=== PATIENT | female | born 1945 | race Caucasian/White ===

== ENCOUNTER 2023-02-05 09:48 | Inpatient (IN) ==
--- NOTE | 2023-02-05 10:30 | DR.URIAD ---
HPI Time Seen Time Seen by Provider: 02/05/23 10:29 PCP Primary Care Physician: nfd Complaint Chief Complaint Doctors Comments: 77 y/o female presents for evaluation. Ill ovr the past 2-3 weeks, + worsening. Has a bad cough, productive of white sputum. Having some chest discomfort, worse with coughing. Feeling weak in general, + worse with ambulation, + lightheaded. Some nausea, no vomiting. Running low grade temp. + urinary frequency with incontinence at times. Chief Complaint:: Pt c/o tightness in chest [place] worse with cough, productive cough, runny nose, weak, "I feel drained", headache, head congestion, "I feel terrible" Self Treatment fo Chief Complaint: taking OTC meds w/o relief of sx COVID-19 Coronavirus risk:travel/contact w/high risk person: No Has patient experienced Coronavirus symptoms: Yes Coronavirus symptoms experienced: Coughing Reviewed Nurses Notes Reviewed: Yes Source History Provided: Patient and Family Member Mode of Arrival Mode of Arrival: Wheelchair Timing Onset of Chief Complaint: 01/22/23 Quality Shortness of Breath: none PMH PMH Past Medical History: Yes Past Medical History: Diabetes and Hypertension Past Surgical History: Yes Surgical History: Cholecystectomy Past Surgical History Comment: tubal ligation Social History Does patient currently use any type of tobacco product: No Have you used tobacco products in the last 12 months: No Type of Tobacco Use: None Does any household member use tobacco: Yes Alcohol Use: None Do you use any recreational Drugs:: No Lives With: Family Lives Where: Home Travel Risk Coronavirus risk:travel/contact w/high risk person: No Has patient experienced Coronavirus symptoms: Yes Coronavirus symptoms experienced: Coughing Infectious screening In the last 2 months have you had wt loss of >10#?: NO Have you had fever, night sweats or hemotysis?: No Have you traveled outside the country in the last 6 months?: No Isolation: Droplet ROS Review of Systems Constitutional: Fever and Weakness Eyes: No Symptoms Reported ENTM: Nose Congestion Respiratoy: Moist Cough and Short of Breath Cardiovascular: Chest Pain Gastrointestinal/Abdominal: Nausea Genitourinary: Frequency Neurological: Weakness and Dizziness Musculoskeletal: No Symptoms Reported Integumentary: No Symptoms Reported All Other Systems: Reviewed and Negative PE Vital Signs Vitals: Vital Signs Temperature 99.8 F Pulse Rate 68 Pulse Rate 66 Pulse Rate 65 Pulse Rate 65 Pulse Rate 67 Pulse Rate 65 Pulse Rate 66 Pulse Rate 81 Pulse Rate 79 Pulse Rate 63 Pulse Rate 65 Pulse Rate 64 Pulse Rate 66 Pulse Rate 68 Pulse Rate 79 Pulse Rate 73 Pulse Rate 77 Pulse Rate 77 Pulse Rate 76 Pulse Rate 75 Pulse Rate 84 Pulse Rate 88 Pulse Rate 85 Pulse Rate 87 Pulse Rate 92 Respiratory Rate 21 Respiratory Rate 16 Respiratory Rate 17 Respiratory Rate 14 Respiratory Rate 18 Respiratory Rate 16 Respiratory Rate 18 Respiratory Rate 46 Respiratory Rate 16 Respiratory Rate 16 Respiratory Rate 15 Respiratory Rate 16 Respiratory Rate 18 Respiratory Rate 17 Respiratory Rate 26 Respiratory Rate 16 Respiratory Rate 25 Respiratory Rate 25 Respiratory Rate 25 Respiratory Rate 23 Respiratory Rate 25 Respiratory Rate 23 Respiratory Rate 8 Respiratory Rate 25 Respiratory Rate 24 Blood Pressure 136/77 Blood Pressure 133/62 Blood Pressure 138/68 Blood Pressure 131/65 Blood Pressure 122/66 O2 Sat by Pulse Oximetry 93 O2 Sat by Pulse Oximetry 94 O2 Sat by Pulse Oximetry 91 O2 Sat by Pulse Oximetry 92 O2 Sat by Pulse Oximetry 91 O2 Sat by Pulse Oximetry 93 O2 Sat by Pulse Oximetry 94 O2 Sat by Pulse Oximetry 89 O2 Sat by Pulse Oximetry 92 O2 Sat by Pulse Oximetry 90 O2 Sat by Pulse Oximetry 93 O2 Sat by Pulse Oximetry 90 O2 Sat by Pulse Oximetry 89 O2 Sat by Pulse Oximetry 88 O2 Sat by Pulse Oximetry 92 O2 Sat by Pulse Oximetry 94 O2 Sat by Pulse Oximetry 92 O2 Sat by Pulse Oximetry 91 O2 Sat by Pulse Oximetry 92 O2 Sat by Pulse Oximetry 91 O2 Sat by Pulse Oximetry 91 O2 Sat by Pulse Oximetry 94 O2 Sat by Pulse Oximetry 91 O2 Sat by Pulse Oximetry 93 O2 Sat by Pulse Oximetry 95 General General Appearance: Alert and In No Apparent Distress Eyes Eye exam: PERRL and EOMI ENT ENT Exam: Mucous Membranes Moist Neck Neck Exam: Normal Inspection Chest Chest Inspection: Normal Inspection Respiratory Respiratory Exam: Normal Lung Sounds Bilat and Other (+ scattered rhonchi, clears with cough); negative Accessory Muscle Use or Respiratory Distress Cardiovascular Cardiovascular Exam: Regular Rate, Normal Rhythm and Normal Heart Sounds Abdominal Exam Abdominal Exam: Normal Bowel Sounds and Soft; negative Tenderness Extremeties Extremities Exam: Normal Inspection; negative Edema Back Back Exam: Normal Inspection Neurologic Neurological Exam: Alert, Oriented X3 and CN II-XII Intact; negative Motor Sensory Deficit Skin Skin Exam: Warm and Dry COURSE Treatment Treatment: 77 y/o with worsening weakness, cough over past 2 weeks. W/u initiated. Pt given IV fluids. CXR - clear. Labs overall acceptable. Pt with hypoxia at rest, worse with exertion. CTA of the chest performed - + bilateral bronchitis changes, but otherwise acceptable. PT recently moved to the area, no prior lung problems. Discussed with Dr Rosales, aircraft load controller, accepts the admission. Will baldo for hypoxia/bronchitis. ROR Labs Reviewed Laboratory Results Reviewed?: Yes 02/05/23 10:45 02/05/23 10:45 Laboratory: WBC 4.7 X10^3/uL (3.6-10.0) 02/05/23 10:45 RBC 4.39 X10^6/uL (3.5-5.4) 02/05/23 10:45 Hgb 12.6 g/dL (12.0-16.0) 02/05/23 10:45 Hct 36.7 % (36.0-47.0) 02/05/23 10:45 MCV 83.7 fL (80.0-100.0) 02/05/23 10:45 MCH 28.8 pg (27.0-34.0) 02/05/23 10:45 MCHC 34.4 g/dL (33.0-35.0) 02/05/23 10:45 RDW 14.1 % (11.6-16.5) 02/05/23 10:45 Plt Count 192 X10^3/uL (150.0-450.0) 02/05/23 10:45 MPV 8.0 fL (7.4-11.0) 02/05/23 10:45 Neut % (Auto) 72.8 % (42.0-75.0) 02/05/23 10:45 Lymph % (Auto) 16.5 % (21.0-51.0) L 02/05/23 10:45 [place] % (Auto) 8.8 % (0.0-13.0) 02/05/23 10:45 Eos % (Auto) 1.4 % (0.9-2.9) 02/05/23 10:45 Baso % (Auto) 0.5 % (0.2-1.0) 02/05/23 10:45 Neut # (Auto) 3.5 x10^3/uL (2.2-4.8) 02/05/23 10:45 Lymph # (Auto) 0.8 X10^3/uL (1.3-2.9) L 02/05/23 10:45 [place] # (Auto) 0.4 x10^3/uL (0.3-0.8) 02/05/23 10:45 Eos # (Auto) 0.1 x10^3/uL (0.0-0.2) 02/05/23 10:45 Baso # (Auto) 0.0 X10^3/uL (0.0-0.1) 02/05/23 10:45 Absolute Nucleated RBC 0.1 /100WBC 02/05/23 10:45 Sodium 134 mmol/L (136-145) L 02/05/23 10:45 Corrected Sodium 135 mmol/L (136-145) L 02/05/23 10:45 Potassium 3.7 mmol/L (3.5-5.1) 02/05/23 10:45 Chloride 98 mmol/L (98-107) 02/05/23 10:45 Carbon Dioxide 25.1 mmol/L (21-32) 02/05/23 10:45 BUN 15 mg/dL (7-18) 02/05/23 10:45 Creatinine 0.95 mg/dL (0.55-1.02) 02/05/23 10:45 Est GFR (MDRD) Af Amer > 60 (>60) 02/05/23 10:45 Est GFR (MDRD) Non-Af > 60 (>60) 02/05/23 10:45 Glucose 153 mg/dL (65-99) H 02/05/23 10:45 Lactic Acid 0.8 mmol/L (0.4-2.0) 02/05/23 10:45 Calcium 8.7 mg/dL (8.5-10.1) 02/05/23 10:45 Corrected Calcium 9.5 mg/dL (8.5-10.1) 02/05/23 10:45 Total Bilirubin 1.30 mg/dL (0.2-1.0) H 02/05/23 10:45 AST 21 Units/L (15-37) 02/05/23 10:45 ALT 27 Units/L (12-78) 02/05/23 10:45 Alkaline Phosphatase 58 Units/L (46-116) 02/05/23 10:45 Troponin I High Sens 8.4 ng/L (4.0-60.0) 02/05/23 10:45 B-Natriuretic Peptide 57.6 pg/mL (0-79) 02/05/23 10:45 Total Protein 6.8 g/dL (6.4-8.2) 02/05/23 10:45 Albumin 3.0 g/dL (3.4-5.0) L 02/05/23 10:45 Globulin 3.8 g/dL (2.5-4.5) 02/05/23 10:45 Albumin/Globulin Ratio 0.8 Ratio (1.1-2.1) L 02/05/23 10:45 Lipase 55 Units/L (73-393) L 02/05/23 10:45 Specimen Type Clean catch urine 02/05/23 12:30 Urine Color Dark yellow (YELLOW) 02/05/23 12:30 Urine Appearance Hazy (CLEAR) 02/05/23 12:30 Urine pH 6.0 (5.0 - 8.0) 02/05/23 12:30 Ur Specific [place] 1.020 (1.000-1.030) 02/05/23 12:30 Urine Protein 2+ (NEGATIVE) 02/05/23 12:30 Urine Glucose (UA) Negative (NEGATIVE) 02/05/23 12:30 Urine Ketones 3+ (NEGATIVE) 02/05/23 12:30 Urine Blood 1+ (NEGATIVE) 02/05/23 12:30 Urine Nitrite Negative (NEGATIVE) 02/05/23 12:30 Urine Bilirubin 1+ (NEGATIVE) 02/05/23 12:30 Urine Urobilinogen 2+ (NORMAL) 02/05/23 12:30 Ur Leukocyte Esterase Negative (NEGATIVE) 02/05/23 12:30 Urine RBC 0-2 /HPF (0-3) 02/05/23 12:30 Urine WBC 0-2 /HPF (0-5) 02/05/23 12:30 Ur Squamous Epith Cells Moderate /HPF (NEGATIVE) 02/05/23 12:30 Urine Bacteria Trace /HPF (NEGATIVE) 02/05/23 12:30 Hyaline Casts Many /LPF (NEGATIVE) 02/05/23 12:30 Urine Mucus Many /HPF (NEGATIVE) 02/05/23 12:30 Ur Culture Indicated? No/not indicated 02/05/23 12:30 SARS-CoV-2 (PCR) Negative (NEGATIVE) 02/05/23 10:29 Influenza Type A (PCR) Negative (NEGATIVE) 02/05/23 10:29 Influenza Type B (PCR) Negative (NEGATIVE) 02/05/23 10:29 RSV (PCR) Negative (NEGATIVE) 02/05/23 10:29 Labs acceptable XRAY XRAY Interpreted by: Both X-ray Results: HISTORY DYSPNEA STUDY CTA CHEST COMPARISON None available TECHNIQUE Multiple axial images of the chest were obtained from the thoracic inlet to the upper abdomen after the administration of IV contrast. 3D reconstructions utilizing axial MIPS imaging was performed and reviewed. Dose reduction techni ques including Automated Exposure Control (AEC) and adjustment of mA and kV were utilized. FINDINGS There is a nodular opacity within the right upper lobe bronchus seen on axial image 64. There is mild diffuse peribronchial thickening within bilateral lungs. There is mild peribronchial thickening and ground-glass consolidation within the left greater than right lower lobes. Centrilobular and paraseptal emphysema. Trachea is midline. Evaluation of pulmonary arteries is significant limited within the subsegmental branches of the right and left lower lobes. Pulmonary thromboembolus within the lower lobe subsegmental arteries is not excluded by this examination. No pleural effusion or pneumothorax. Heart size is without pericardial effusion. Moderate calcified atherosclerotic disease of the coronary arteries. Thyroid gland is normal. Mildly enlarged subcarinal lymph nodes. Shotty bilateral hilar lymph nodes. Review of bone windows demonstrates advanced degenerative change of bilateral glenohumeral joints. No acute osseous abnormality identified. Imaging of the upper abdomen demonstrates no abnormality. IMPRESSION Significantly limited evaluation of pulmonary arteries given motion artifact and contrast bolus timing within the lower lobe segmental pulmonary arteries, the well opacified pulmonary demonstrate no PTE. Moderate bilateral peribronchial thickening and peribronchial consolidation within the lower lobes consistent with a/bronchitis. Recommend correlation with follow-up chest CT to ensure resolution. Additional incidental, nonacute findings as described above. Electronically signed by: LESLY PRO (Feb 05, 2023 15:18:59) EKG Rate: 85 [place]: Normal Rhythm: NSR ST: Nonsp (+ decreased R wave progression of anterior leads.) Opioid Opioid Risk Tool Age (Woody box if 16-45): No History of Preadolescent Sexual Abuse: No Total: 0 Total Score Risk Category: Low Risk Copyright: Stone MAX predicting aberrant behaviors Discharge Plan Diagnosis Discharge Problem: Hypoxia, Acute bronchitis Discharge Plan Patient Disposition: 09 ADMITTED INPATIENT Condition: Stable Orders to Discharge Patient Discharge Orders: Transfer (Routine); Ordered 02/05/23 Ordered By: Dwight Keita
[2023-02-05] MEDS ORDERED: NS 1,000 ML IV 1,000 ML IV ONE (10:45)
[2023-02-05] MEDS ORDERED: NS 500 ML IV 500 ML IV ONE ×2 (10:46→10:57)
--- NOTE | 2023-02-05 11:03 | EKG ---
Test Reason : dyspnea Blood Pressure : */* mmHG Vent. Rate : 85 BPM Atrial Rate : 85 BPM P-R Int : 178 ms QRS Dur : 80 ms QT Int : 354 ms P-R-T Axes : -28 23 52 degrees QTc Int : 421 ms Normal sinus rhythm Low voltage QRS Cannot rule out Anteroseptal infarct , age undetermined Abnormal ECG No previous ECGs available Confirmed by Sal Link ([id number]) on 02/07/2023 12:12:44 PM Referred By: Confirmed By: Sal Link
[2023-02-05 11:24] LABS: BASOPHILS % (AUTO) 0.5 % (0.2-1.0); EOSINOPHILS # (AUTO) 0.1 x10^3/uL (0.0-0.2); EOSINOPHILS % (AUTO) 1.4 % (0.9-2.9); HEMATOCRIT 36.7 % (36.0-47.0); HEMOGLOBIN 12.6 g/dL (12.0-16.0); LYMPHOCYTES # (AUTO) 0.8 X10^3/uL (1.3-2.9); LYMPHOCYTES % (AUTO) 16.5 % (21.0-51.0); MEAN CORPUSCULAR HEMOGLOBIN 28.8 pg (27.0-34.0); MEAN CORPUSCULAR HGB CONC 34.4 g/dL (33.0-35.0); MEAN CORPUSCULAR VOLUME 83.7 fL (80.0-100.0); MONOCYTES # (AUTO) 0.4 x10^3/uL (0.3-0.8); MONOCYTES % (AUTO) 8.8 % (0.0-13.0); NEUTROPHILS # (AUTO) 3.5 x10^3/uL (2.2-4.8); NEUTROPHILS % (AUTO) 72.8 % (42.0-75.0); PLATELET COUNT 192 X10^3/uL (150.0-450.0); RED BLOOD COUNT 4.39 X10^6/uL (3.5-5.4); RED CELL DISTRIBUTION WIDTH 14.1 % (11.6-16.5); WHITE BLOOD COUNT 4.7 X10^3/uL (3.6-10.0)
[2023-02-05 11:41] LABS: LACTIC ACID 0.8 mmol/L (0.4-2.0)
[2023-02-05 11:42] LABS: ALANINE AMINOTRANSFERASE 27 Units/L (12-78); ALKALINE PHOSPHATASE 58 Units/L (46-116); ASPARTATE AMINO TRANSFERASE 21 Units/L (15-37); BLOOD UREA NITROGEN 15 mg/dL (7-18); CALCIUM 8.7 mg/dL (8.5-10.1); CARBON DIOXIDE 25.1 mmol/L (21-32); CHLORIDE 98 mmol/L (98-107); COR CA(FOR HYPOALB) 9.5 mg/dL (8.5-10.1); COR NA(FOR HYPERGLY) 135 mmol/L (136-145); CREATININE 0.95 mg/dL (0.55-1.02); GLUCOSE 153 mg/dL (65-99); LIPASE 55 Units/L (73-393); POTASSIUM 3.7 mmol/L (3.5-5.1); SODIUM 134 mmol/L (136-145); TOTAL PROTEIN 6.8 g/dL (6.4-8.2); eGFR NON BLACK RACES > 60 (>60)
[2023-02-05 12:39] LABS: BILIRUBIN,URINE 1+ (NEGATIVE); BLOOD/HEMOGLOBIN,URINE 1+ (NEGATIVE); GLUCOSE, URINE NEGATIVE (NEGATIVE); KETONES,URINE 3+ (NEGATIVE); LEUKOCYTE ESTERASE ,URINE NEGATIVE (NEGATIVE); NITRITES,URINE NEGATIVE (NEGATIVE); PROTEIN,URINE 2+ (NEGATIVE); UROBILINOGEN,URINE 2+ (NORMAL)
[2023-02-05 12:46] LABS: APPEARANCE,URINE HAZY (CLEAR); COLOR,URINE DARK YELLOW (YELLOW)
[2023-02-05 12:47] LABS: BACTERIA,URINE TRACE /HPF (NEGATIVE); HYALINE CASTS, URINE MANY /LPF (NEGATIVE); RBC,URINE 0-2 /HPF (0-3); SQUAMOUS EPITHELIAL CELL,UR MODERATE /HPF (NEGATIVE)
--- NOTE | 2023-02-05 13:33 | RAD ---
HISTORYCOUGH Relevant Clinical InformationSTUDYCHEST, 1 VIEWCOMPARISONnoneFINDINGSThe trachea is midline. The cardiac silhouette is unremarkable. No pleural effusion or pneumothorax. No dominant alveolar radiopacities. 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
[2023-02-05] MEDS ORDERED: OMNIPAQUE 350 mg/mL 100 mL BTL 100 ML ONE (14:02)
--- NOTE | 2023-02-05 15:20 | CT ---
HISTORYDYSPNEASTUDYCTA CHESTCOMPARISONNone availableTECHNIQUEMultiple axial images of the chest were obtained from the thoracic inlet to the upper abdomen after the administration of IV contrast. 3D reconstructions utilizing axial MIPS imaging was performed and reviewed. Dose reduction techniques including Automated Exposure Control (AEC) and adjustment of mA and kV were utilized.FINDINGSThere is a nodular opacity within the right upper lobe bronchus seen on axial image 64. There is mild diffuse peribronchial thickening within bilateral lungs. There is mild peribronchial thickening and ground-glass consolidation within the left greater than right lower lobes. Centrilobular and paraseptal emphysema. Trachea is midline.Evaluation of pulmonary arteries is significant limited within the subsegmental branches of the right and left lower lobes. Pulmonary thromboembolus within the lower lobe subsegmental arteries is not excluded by this examination.No pleural effusion or pneumothorax.Heart size is without pericardial effusion. Moderate calcified atherosclerotic disease of the coronary arteries. Thyroid gland is normal.Mildly enlarged subcarinal lymph nodes. Shotty bilateral hilar lymph nodes.Review of bone windows demonstrates advanced degenerative change of bilateral glenohumeral joints. No acute osseous abnormality identified. Imaging of the upper abdomen demonstrates no abnormality.IMPRESSIONSignificantly limited evaluation of pulmonary arteries given motion artifact and contrast bolus timing within the lower lobe segmental pulmonary arteries, the well opacified pulmonary demonstrate no PTE.Moderate bilateral peribronchial thickening and peribronchial consolidation within the lower lobes consistent with a/bronchitis. Recommend correlation with follow-up chest CT to ensure resolution.Additional incidental, nonacute findings as described above.Electronically signed by: LESLY PRO (Feb 05, 2023 15:18:59)
[2023-02-05] MEDS ORDERED: SOLU-Medrol 125 MG VIAL IVP STA (16:08)
[2023-02-05] MEDS ORDERED: DUONEB 0.5 MG/3 MG (3 mL) NEB ONE ×2 (16:09→16:23)
[2023-02-05] MEDS ORDERED: ROCEPHIN VIAL 1 GRAM IV SCH (16:15)
[2023-02-05] MEDS ORDERED: SOLU-Medrol 40 MG VIAL ONE (16:22)
[2023-02-05] MEDS ORDERED: ROCEPHIN VIAL 1 GRAM ONE (16:22)
[2023-02-05] MEDS ORDERED: NS 100 ML IV 100 ML ONE (16:23)
[2023-02-05] MEDS ORDERED: ROCEPHIN VIAL 1 GRAM 1 G in NS 100 ML IV 100 ML IV SCH (17:00)
[2023-02-05] MEDS ORDERED: CONSULT PHARMACY - POTASSIUM & MAGNESIUM XX SCH (18:25)
[2023-02-05] MEDS ORDERED: DUONEB 0.5 MG/3 MG (3 mL) NEB SCH (18:25)
[2023-02-05] MEDS ORDERED: K-DUR TAB 20 MEQ PO SCH (19:00)
[2023-02-05 19:17] VITALS: BMI 26.0
[2023-02-05] MEDS: MAG-OX TAB PO SCH ×4 (19:45→22:43)
[2023-02-05] MEDS ORDERED: MILK OF MAGNESIA PO PRN (21:44)
[2023-02-05] MEDS: SOLU-Medrol 40 MG VIAL IVP SCH (23:32)
[2023-02-06] MEDS: DUONEB 0.5 MG/3 MG (3 mL) NEB SCH ×4 (00:57→17:01)
[2023-02-06] MEDS: SOLU-Medrol 40 MG VIAL IVP SCH ×3 (05:23→21:21)
[2023-02-06 06:11] LABS: HEMOGLOBIN 12.2 g/dL (12.0-16.0); MEAN CORPUSCULAR HGB CONC 35.2 g/dL (33.0-35.0); MEAN PLATELET VOLUME 7.8 fL (7.4-11.0); RED CELL DISTRIBUTION WIDTH 13.6 % (11.6-16.5); WHITE BLOOD COUNT 2.6 X10^3/uL (3.6-10.0)
[2023-02-06 06:20] LABS: BASOPHILS % (AUTO) 0.1 % (0.2-1.0); EOSINOPHILS % (AUTO) 0.1 % (0.9-2.9); HEMATOCRIT 34.7 % (36.0-47.0); LYMPHOCYTES # (AUTO) 0.8 X10^3/uL (1.3-2.9); LYMPHOCYTES % (AUTO) 29.2 % (21.0-51.0); MEAN CORPUSCULAR VOLUME 82.6 fL (80.0-100.0); MONOCYTES # (AUTO) 0.1 x10^3/uL (0.3-0.8); MONOCYTES % (AUTO) 2.7 % (0.0-13.0); NEUTROPHILS # (AUTO) 1.8 x10^3/uL (2.2-4.8); NEUTROPHILS % (AUTO) 67.9 % (42.0-75.0); PLATELET COUNT 189 X10^3/uL (150.0-450.0)
[2023-02-06 06:44] LABS: ALANINE AMINOTRANSFERASE 31 Units/L (12-78); ALBUMIN 2.8 g/dL (3.4-5.0); ALKALINE PHOSPHATASE 59 Units/L (46-116); ASPARTATE AMINO TRANSFERASE 23 Units/L (15-37); BLOOD UREA NITROGEN 19 mg/dL (7-18); CALCIUM 8.8 mg/dL (8.5-10.1); CARBON DIOXIDE 26.2 mmol/L (21-32); CHLORIDE 98 mmol/L (98-107); COR CA(FOR HYPOALB) 9.8 mg/dL (8.5-10.1); COR NA(FOR HYPERGLY) 137 mmol/L (136-145); CREATININE 0.97 mg/dL (0.55-1.02); GLUCOSE 289 mg/dL (65-99); MAGNESIUM 1.7 mg/dL (2.0-2.9); POTASSIUM 4.3 mmol/L (3.5-5.1); SODIUM 132 mmol/L (136-145); TOTAL PROTEIN 6.7 g/dL (6.4-8.2); eGFR NON BLACK RACES 59 (>60)
[2023-02-06] MEDS ORDERED: CONSULT PHARMACY - POTASSIUM & MAGNESIUM XX SCH (08:00)
[2023-02-06] MEDS ORDERED: ZESTRIL TAB 20 MG ONE (08:04)
[2023-02-06] MEDS: COLACE CAP 100 MG PO SCH (08:41)
[2023-02-06] MEDS: PRAVACHOL PO SCH (08:41)
[2023-02-06] MEDS: ZESTRIL TAB 20 MG PO SCH (08:42)
[2023-02-06] MEDS: ROCEPHIN VIAL 1 GRAM 1 G in NS 100 ML IV 100 ML IV SCH (08:42)
[2023-02-06] MEDS: MAG-OX TAB PO SCH ×2 (08:42→21:20)
[2023-02-06] MEDS: ASPIRIN 81 MG CHEWTAB PO SCH (08:42)
[2023-02-06] MEDS ORDERED: NS 250 ML IV 250 ML IV ONE (08:47)
[2023-02-06 09:36] LABS: ABG BASE EXCESS 6.3 mmol/L (-2.0-2.0); ABG HCO3 29.4 mmol/L (22-26)
[2023-02-06 09:38] LABS: ABG ALLEN TEST POS
[2023-02-06] MEDS: NovoLIN R (or HumuLIN R) SUBCUT PRN ×3 (12:28→21:28)
--- NOTE | 2023-02-06 14:33 | DR.H&P ---
H&P - History & Physical for Day of: H&P Date: 02/05/23 - Chief Complaint Chief Complaint: CCC, SOB, WEAKNESS. - History of Present Illness History of Present Illness: PT IS 77 WF, ER ADMISSION WITH SOB, HYPOXIA AND CCC. PT REPORTS SHE HAS BEEN SICK FOR SEVERAL WEEKS AND GETTING WORSE. PT DENIES ANY PMH OF ASTHMA OR LUNG DISEASE. PT HAS HTN AND DM. PT WAS HYPOXIC ON ARRIVAL TO ER WITH PNEUMONIA. PT REPORT SHE HAS HAD BLACK MOLD EXPOSURE, DISCOVERED THIS BACK IN DECEMBER. - Past Medical History Past Medical History: Hypertension, Diabetes - Past Surgical History Surgical History: Cholecystectomy, [employer] Surgery - Social History Does patient currently use any type of tobacco product: No Have you used tobacco products in the last 12 months: No Type of Tobacco Use: None How many years tobacco product used: 30 Does any household member use tobacco: Yes Alcohol Use: None Drug Use: None - Review of Systems Constitutional: Chills, Weakness, Malaise Eyes: No Symptoms Reported ENT: No Symptoms Reported Respiratory: Cough, Shortness of Breath, SOB with Excertion, Sputum, Wheezing Cardiovascular: Palpitations Gastrointestinal: Nausea Genitourinary: No Symptoms Reported Musculoskeletal: No Symptoms Reported Skin: No Symptoms Reported Neurological: Weakness - Physical Exam Vital Signs: Vital Signs Temperature 98.0 F Temperature 98.2 F Pulse Rate [Brachial] 63 Pulse Rate [Brachial] 75 Pulse Rate 88 Respiratory Rate 22 Respiratory Rate 22 Blood Pressure [Right Arm] 162/69 Blood Pressure [Right Arm] 144/75 O2 Sat by Pulse Oximetry 94 O2 Sat by Pulse Oximetry 94 O2 Sat by Pulse Oximetry 94 Oriented: Normal Eyes: Normal Ear: Normal Nose: Normal Throat: Dry Respiratory: Wheezes Throughout, RLL Diminished, LLL Diminished Cardiovascular: Tachycardia. negative: Edema : Normal Auscultation: Bowel Sounds: Normal Palpation: Normal Tenderness: Normal Skin: Decreased [place]urgur Musculoskeletal: Normal Psychiatric: Anxiety Affect: Anxious Speech Pattern: Clear, Appropriate - Assessment/Plan (1) Pneumonia Status: Acute Plan: ADMIT, RESP PANEL ON ADMISSION. CTA LUNGS RO PE. IV ATBX, SPUTUM CULTURE ON ADMISSION. GENTLE IV HYDRATION WITH I&OS. VERIFY HOME MEDICATION, BP CONTROL, BS CONTROL WITH SSI (2) Hypoxia Status: Acute (3) Hypertension Status: Acute - Allergies Allergies/Adverse Reactions: Allergies Allergy/AdvReac Type Severity Reaction Status Date / Time No Known Allergies Allergy Verified 02/05/23 10:13 - Medications Home Medications: Home Medications Medication Instructions Recorded Confirmed aspirin 81 mg chewable tablet 81 mg PO QAM 02/05/23 02/05/23 lisinopril 20 mg tablet 20 mg PO QAM 02/05/23 02/05/23 polyethylene glycol 3350 17 gram 17 g PO QDAY PRN Constipation 02/05/23 02/05/23 oral powder packet (Miralax) pravastatin 20 mg tablet 20 mg PO QAM 02/05/23 02/05/23
[2023-02-06] MEDS: NS 1,000 ML IV 1,000 ML IV SCH (15:09)
[2023-02-06] MEDS: PROTONIX INJ 40 MG VIAL IVP SCH (15:10)
[2023-02-06] MEDS: ROBITUSSIN DM PO SCH ×2 (17:05→21:21)
[2023-02-06] MEDS: SNACK - Diabetic Appropriate PO SCH (19:00)
[2023-02-06] MEDS: PULMICORT NEB TX 0.5 MG NEB SCH (21:19)
[2023-02-07] MEDS: DUONEB 0.5 MG/3 MG (3 mL) NEB SCH ×4 (00:18→17:46)
[2023-02-07] MEDS: SOLU-Medrol 40 MG VIAL IVP SCH (05:14)
[2023-02-07] MEDS: NovoLIN R (or HumuLIN R) SUBCUT PRN ×4 (05:34→21:38)
[2023-02-07 05:46] LABS: BASOPHILS % (AUTO) 0 % (0.2-1.0); HEMATOCRIT 30.6 % (36.0-47.0); HEMOGLOBIN 10.9 g/dL (12.0-16.0); LYMPHOCYTES # (AUTO) 0.6 X10^3/uL (1.3-2.9); LYMPHOCYTES % (AUTO) 8.7 % (21.0-51.0); MEAN CORPUSCULAR HEMOGLOBIN 29.3 pg (27.0-34.0); MEAN CORPUSCULAR HGB CONC 35.4 g/dL (33.0-35.0); MEAN CORPUSCULAR VOLUME 82.8 fL (80.0-100.0); MEAN PLATELET VOLUME 8.3 fL (7.4-11.0); MONOCYTES # (AUTO) 0.2 x10^3/uL (0.3-0.8); MONOCYTES % (AUTO) 3.5 % (0.0-13.0); NEUTROPHILS # (AUTO) 5.7 x10^3/uL (2.2-4.8); NEUTROPHILS % (AUTO) 87.8 % (42.0-75.0); PLATELET COUNT 190 X10^3/uL (150.0-450.0); RED CELL DISTRIBUTION WIDTH 13.6 % (11.6-16.5); WHITE BLOOD COUNT 6.5 X10^3/uL (3.6-10.0)
[2023-02-07 06:03] LABS: ALANINE AMINOTRANSFERASE 29 Units/L (12-78); ALBUMIN 2.6 g/dL (3.4-5.0); ALKALINE PHOSPHATASE 51 Units/L (46-116); ASPARTATE AMINO TRANSFERASE 17 Units/L (15-37); BLOOD UREA NITROGEN 27 mg/dL (7-18); CALCIUM 8.6 mg/dL (8.5-10.1); CARBON DIOXIDE 25.7 mmol/L (21-32); CHLORIDE 101 mmol/L (98-107); COR CA(FOR HYPOALB) 9.7 mg/dL (8.5-10.1); COR NA(FOR HYPERGLY) 139 mmol/L (136-145); CREATININE 0.99 mg/dL (0.55-1.02); GLUCOSE 301 mg/dL (65-99); MAGNESIUM 1.9 mg/dL (2.0-2.9); POTASSIUM 4.5 mmol/L (3.5-5.1); SODIUM 134 mmol/L (136-145); TOTAL PROTEIN 6.1 g/dL (6.4-8.2); eGFR NON BLACK RACES 58 (>60)
[2023-02-07] MEDS: PULMICORT NEB TX 0.5 MG NEB SCH ×2 (08:20→21:00)
[2023-02-07] MEDS ORDERED: ZESTRIL TAB 20 MG ONE (09:18)
[2023-02-07] MEDS: ROCEPHIN VIAL 1 GRAM 1 G in NS 100 ML IV 100 ML IV SCH (09:28)
[2023-02-07] MEDS: MAG-OX TAB PO SCH ×2 (09:29→21:18)
[2023-02-07] MEDS: COLACE CAP 100 MG PO SCH (09:29)
[2023-02-07] MEDS: ROBITUSSIN DM PO SCH ×4 (09:29→21:18)
[2023-02-07] MEDS: ASPIRIN 81 MG CHEWTAB PO SCH (09:30)
[2023-02-07] MEDS: ZESTRIL TAB 20 MG PO SCH (09:30)
[2023-02-07] MEDS: PROTONIX INJ 40 MG VIAL IVP SCH (09:31)
[2023-02-07] MEDS: PRAVACHOL PO SCH (09:32)
--- NOTE | 2023-02-07 12:40 | RAD ---
HISTORYBronchitis pneumoniaSTUDYPortable AP chestCOMPARISONAugust 2022FINDINGSHeart size remains normal. There is a diffuse nonspecific interstitial increase in both lower lungs without evidence for segmental or lobar consolidation. The upper lobes are clear. No pleural fluid or adenopathy is noted. Significant arthritic deformity involves both shoulders.IMPRESSIONBibasal interstitial prominence is nonspecific and may represent fibrosis or more acute inflammatory process as suggested on recent CT imaging.Electronically signed by: KATJA ROGERS (Feb 07, 2023 12:38:30)
[2023-02-07] MEDS: NS 1,000 ML IV 1,000 ML IV SCH (15:33)
[2023-02-07] MEDS: SNACK - Diabetic Appropriate PO SCH (21:20)
[2023-02-08] MEDS: DUONEB 0.5 MG/3 MG (3 mL) NEB SCH ×4 (00:40→16:34)
[2023-02-08] MEDS: NovoLIN R (or HumuLIN R) SUBCUT PRN ×4 (06:04→20:51)
[2023-02-08 06:46] LABS: BASOPHILS % (AUTO) 0.1 % (0.2-1.0); EOSINOPHILS % (AUTO) 0.1 % (0.9-2.9); HEMOGLOBIN 10.6 g/dL (12.0-16.0); LYMPHOCYTES # (AUTO) 0.9 X10^3/uL (1.3-2.9); LYMPHOCYTES % (AUTO) 15.1 % (21.0-51.0); MEAN CORPUSCULAR HEMOGLOBIN 29.2 pg (27.0-34.0); MEAN CORPUSCULAR HGB CONC 35.4 g/dL (33.0-35.0); MEAN CORPUSCULAR VOLUME 82.5 fL (80.0-100.0); MEAN PLATELET VOLUME 8.3 fL (7.4-11.0); MONOCYTES # (AUTO) 0.3 x10^3/uL (0.3-0.8); MONOCYTES % (AUTO) 4.9 % (0.0-13.0); NEUTROPHILS # (AUTO) 4.7 x10^3/uL (2.2-4.8); NEUTROPHILS % (AUTO) 79.8 % (42.0-75.0); PLATELET COUNT 174 X10^3/uL (150.0-450.0); RED BLOOD COUNT 3.64 X10^6/uL (3.5-5.4); RED CELL DISTRIBUTION WIDTH 13.8 % (11.6-16.5); WHITE BLOOD COUNT 5.9 X10^3/uL (3.6-10.0)
[2023-02-08 07:02] LABS: ALANINE AMINOTRANSFERASE 344 Units/L (12-78); ALBUMIN 2.5 g/dL (3.4-5.0); ALKALINE PHOSPHATASE 49 Units/L (46-116); ASPARTATE AMINO TRANSFERASE 221 Units/L (15-37); BLOOD UREA NITROGEN 21 mg/dL (7-18); CALCIUM 8.3 mg/dL (8.5-10.1); CARBON DIOXIDE 27.6 mmol/L (21-32); CHLORIDE 102 mmol/L (98-107); COR CA(FOR HYPOALB) 9.5 mg/dL (8.5-10.1); COR NA(FOR HYPERGLY) 139 mmol/L (136-145); CREATININE 0.78 mg/dL (0.55-1.02); GLUCOSE 199 mg/dL (65-99); MAGNESIUM 1.7 mg/dL (2.0-2.9); POTASSIUM 4.3 mmol/L (3.5-5.1); SODIUM 137 mmol/L (136-145); TOTAL PROTEIN 5.7 g/dL (6.4-8.2); eGFR NON BLACK RACES > 60 (>60)
[2023-02-08] MEDS: PULMICORT NEB TX 0.5 MG NEB SCH ×2 (08:03→20:10)
[2023-02-08] MEDS ORDERED: SOLU-Medrol 40 MG VIAL IVP SCH (09:00)
[2023-02-08] MEDS ORDERED: ZESTRIL TAB 20 MG ONE (09:14)
[2023-02-08] MEDS: PRAVACHOL PO SCH (09:46)
[2023-02-08] MEDS: ROBITUSSIN DM PO SCH ×4 (09:47→20:36)
[2023-02-08] MEDS: ZESTRIL TAB 20 MG PO SCH (09:47)
[2023-02-08] MEDS: ASPIRIN 81 MG CHEWTAB PO SCH (09:47)
[2023-02-08] MEDS: MAG-OX TAB PO SCH ×3 (09:47→22:00)
[2023-02-08] MEDS: COLACE CAP 100 MG PO SCH (09:47)
[2023-02-08 11:38] LABS: ABG BASE EXCESS 5.2 mmol/L (-2.0-2.0)
[2023-02-08 11:39] LABS: ABG ALLEN TEST POS
--- NOTE | 2023-02-08 12:08 | RAD ---
EXAM:CHEST, PA/LAT ADULTHISTORY:Cough and shortness of breathCOMPARISON:02/07/2023FINDINGS:The trachea is midline. The cardiac silhouette is unremarkable . The lungs are clear without focal infiltrate or effusion. The bony thorax is unremarkable.IMPRESSION:No acute cardiopulmonary disease.THIS IS AN ELECTRONICALLY VERIFIED FINAL REPORT02/08/2023 12:05 PM - Electronically signed by Chris Hightower MD
[2023-02-08] MEDS: ROCEPHIN VIAL 1 GRAM 1 G in NS 100 ML IV 100 ML IV SCH (14:15)
[2023-02-08] MEDS: PROTONIX INJ 40 MG VIAL IVP SCH (14:15)
[2023-02-08] MEDS: NS 1,000 ML IV 1,000 ML IV SCH (14:16)
[2023-02-08] MEDS: ROCEPHIN VIAL 1 GRAM IM SCH (17:38)
[2023-02-08] MEDS: PROTONIX TAB 40 MG PO SCH (17:38)
[2023-02-08] MEDS: ULTRAM PO PRN (19:29)
[2023-02-08] MEDS: SNACK - Diabetic Appropriate PO SCH (20:44)
[2023-02-09] MEDS: DUONEB 0.5 MG/3 MG (3 mL) NEB SCH ×6 (00:04→18:10)
[2023-02-09] MEDS ORDERED: CATAPRES TAB 0.1 MG PO ONE (00:08)
[2023-02-09] MEDS: MAG-OX TAB PO SCH ×3 (05:29→21:59)
[2023-02-09] MEDS: PULMICORT NEB TX 0.5 MG NEB SCH ×2 (08:21→20:32)
[2023-02-09] MEDS ORDERED: ZESTRIL TAB 20 MG ONE (08:32)
[2023-02-09] MEDS: ROBITUSSIN DM PO SCH ×4 (08:46→21:02)
[2023-02-09] MEDS: COLACE CAP 100 MG PO SCH (08:46)
[2023-02-09] MEDS: ROCEPHIN VIAL 1 GRAM IM SCH (08:46)
[2023-02-09] MEDS: PROTONIX TAB 40 MG PO SCH (08:47)
[2023-02-09] MEDS: ZESTRIL TAB 20 MG PO SCH (08:47)
[2023-02-09] MEDS: ASPIRIN 81 MG CHEWTAB PO SCH (08:47)
[2023-02-09] MEDS: PRAVACHOL PO SCH (08:49)
[2023-02-09 10:53] LABS: BASOPHILS % (AUTO) 0.1 % (0.2-1.0); EOSINOPHILS % (AUTO) 0.9 % (0.9-2.9); HEMATOCRIT 33.6 % (36.0-47.0); HEMOGLOBIN 11.6 g/dL (12.0-16.0); LYMPHOCYTES # (AUTO) 0.8 X10^3/uL (1.3-2.9); LYMPHOCYTES % (AUTO) 15.5 % (21.0-51.0); MEAN CORPUSCULAR HGB CONC 34.5 g/dL (33.0-35.0); MEAN CORPUSCULAR VOLUME 84.1 fL (80.0-100.0); MEAN PLATELET VOLUME 7.9 fL (7.4-11.0); MONOCYTES # (AUTO) 0.3 x10^3/uL (0.3-0.8); MONOCYTES % (AUTO) 5.9 % (0.0-13.0); NEUTROPHILS # (AUTO) 4.1 x10^3/uL (2.2-4.8); NEUTROPHILS % (AUTO) 77.6 % (42.0-75.0); PLATELET COUNT 170 X10^3/uL (150.0-450.0); WHITE BLOOD COUNT 5.3 X10^3/uL (3.6-10.0)
[2023-02-09 11:18] LABS: ALANINE AMINOTRANSFERASE 236 Units/L (12-78); ALBUMIN 2.6 g/dL (3.4-5.0); ALKALINE PHOSPHATASE 61 Units/L (46-116); ASPARTATE AMINO TRANSFERASE 59 Units/L (15-37); BLOOD UREA NITROGEN 16 mg/dL (7-18); CALCIUM 8.3 mg/dL (8.5-10.1); CHLORIDE 97 mmol/L (98-107); COR CA(FOR HYPOALB) 9.4 mg/dL (8.5-10.1); COR NA(FOR HYPERGLY) 136 mmol/L (136-145); CREATININE 0.92 mg/dL (0.55-1.02); GLUCOSE 245 mg/dL (65-99); POTASSIUM 4.5 mmol/L (3.5-5.1); SODIUM 133 mmol/L (136-145); TOTAL PROTEIN 5.9 g/dL (6.4-8.2); eGFR NON BLACK RACES > 60 (>60)
[2023-02-09] MEDS: LOVENOX INJ 40 MG SYR SC SCH (11:38)
[2023-02-09] MEDS: NovoLIN R (or HumuLIN R) SUBCUT PRN ×2 (12:06→17:36)
[2023-02-09] MEDS: VISTARIL PO SCH ×2 (17:34→21:59)
[2023-02-09] MEDS: NORVASC TAB 5 MG PO SCH (18:26)
[2023-02-09] MEDS: BUSPAR PO SCH (21:02)
[2023-02-09] MEDS: ULTRAM PO PRN (21:03)
[2023-02-09] MEDS: SNACK - Diabetic Appropriate PO SCH (21:59)
[2023-02-09 23:20] VITALS: RESP 20
[2023-02-10] MEDS: MAG-OX TAB PO SCH ×3 (05:48→21:24)
[2023-02-10] MEDS: VISTARIL PO SCH ×3 (05:48→21:23)
[2023-02-10] MEDS: DUONEB 0.5 MG/3 MG (3 mL) NEB SCH ×4 (06:12→17:22)
[2023-02-10 06:26] LABS: BASOPHILS % (AUTO) 0.1 % (0.2-1.0); EOSINOPHILS # (AUTO) 0.1 x10^3/uL (0.0-0.2); EOSINOPHILS % (AUTO) 2.5 % (0.9-2.9); HEMATOCRIT 34.3 % (36.0-47.0); HEMOGLOBIN 11.9 g/dL (12.0-16.0); LYMPHOCYTES # (AUTO) 1.1 X10^3/uL (1.3-2.9); LYMPHOCYTES % (AUTO) 21.2 % (21.0-51.0); MEAN CORPUSCULAR HEMOGLOBIN 28.9 pg (27.0-34.0); MEAN CORPUSCULAR HGB CONC 34.6 g/dL (33.0-35.0); MEAN CORPUSCULAR VOLUME 83.5 fL (80.0-100.0); MONOCYTES # (AUTO) 0.3 x10^3/uL (0.3-0.8); MONOCYTES % (AUTO) 5.8 % (0.0-13.0); NEUTROPHILS # (AUTO) 3.6 x10^3/uL (2.2-4.8); NEUTROPHILS % (AUTO) 70.4 % (42.0-75.0); PLATELET COUNT 198 X10^3/uL (150.0-450.0); RED CELL DISTRIBUTION WIDTH 13.9 % (11.6-16.5); WHITE BLOOD COUNT 5.2 X10^3/uL (3.6-10.0)
[2023-02-10 06:34] LABS: ALANINE AMINOTRANSFERASE 171 Units/L (12-78); ALBUMIN 2.5 g/dL (3.4-5.0); ALKALINE PHOSPHATASE 54 Units/L (46-116); ASPARTATE AMINO TRANSFERASE 30 Units/L (15-37); BLOOD UREA NITROGEN 17 mg/dL (7-18); CALCIUM 8.7 mg/dL (8.5-10.1); CARBON DIOXIDE 32.6 mmol/L (21-32); CHLORIDE 99 mmol/L (98-107); COR CA(FOR HYPOALB) 9.9 mg/dL (8.5-10.1); COR NA(FOR HYPERGLY) 136 mmol/L (136-145); CREATININE 0.77 mg/dL (0.55-1.02); GLUCOSE 153 mg/dL (65-99); POTASSIUM 4.2 mmol/L (3.5-5.1); SODIUM 135 mmol/L (136-145); TOTAL PROTEIN 5.8 g/dL (6.4-8.2); eGFR NON BLACK RACES > 60 (>60)
[2023-02-10] MEDS: PULMICORT NEB TX 0.5 MG NEB SCH ×2 (08:47→21:10)
[2023-02-10] MEDS ORDERED: ZESTRIL TAB 20 MG ONE (08:52)
[2023-02-10] MEDS: PROTONIX TAB 40 MG PO SCH (08:57)
[2023-02-10] MEDS: LOVENOX INJ 40 MG SYR SC SCH (08:57)
[2023-02-10] MEDS: COLACE CAP 100 MG PO SCH (08:57)
[2023-02-10] MEDS: ROBITUSSIN DM PO SCH ×4 (08:57→21:23)
[2023-02-10] MEDS: ROCEPHIN VIAL 1 GRAM 1 G in NS 100 ML IV 100 ML IV SCH (08:57)
[2023-02-10] MEDS: ZESTRIL TAB 20 MG PO SCH (08:58)
[2023-02-10] MEDS: PRAVACHOL PO SCH (08:58)
[2023-02-10] MEDS: ASPIRIN 81 MG CHEWTAB PO SCH (08:58)
[2023-02-10] MEDS: NORVASC TAB 5 MG PO SCH (08:58)
[2023-02-10] MEDS: BUSPAR PO SCH (09:02)
[2023-02-10] MEDS: NovoLIN R (or HumuLIN R) SUBCUT PRN ×2 (12:18→21:25)
--- NOTE | 2023-02-10 17:59 | PCM.PROG ---
Progress Note - Progress Note for Day of Date of Exam: 02/10/23 - Subjective Subjective: The patient has been being treated for pneumonia with hypoxia. The patient had a repeat ABG with her PO2 up to 68 from 45 on admission and that was on room air. One of her blood cultures was showing growth so we are continuing IV ATBX until final results. Pt was started on Vistaril 25mg po prn anxiety and buspar 5mg q hs. Pt reports she slept much better last pmh with medication for anxiety. On exam, she does have some fine bibasilar crackles. She has diffuse upper expiratory wheezes throughout. An ECHO was performed this am with results pending. Pt was started on amlodipine blas with her lisinopril, which she has tolerated well. - Past Medical Family Social History Past Med/Fam/Surg Hx: No changes since H&P Allergies: Allergies No Known Allergies Allergy (Verified 02/05/23 10:13) - Review of Systems ROS: No change since H&P - Vital Signs and I&O's Intake and Output: Intake & Output 02/08/23 02/09/23 02/10/23 02/11/23 11:59 11:59 11:59 11:59 Intake Total 1536 / 1536 580 / 580 3040 / 3040 110 / 110 Output Total 750 / 750 Balance 1536 / 1536 -170 / -170 3040 / 3040 110 / 110 - Physical Exam Oriented: Normal Eyes: Normal Ear: Normal Nose: Normal Throat: Dry Respiratory: Diminished, Wheezes Cardiovascular: Normal. negative: Edema : Normal Auscultation: Bowel Sounds: Normal Tenderness: Normal Skin: Decreased [place]urgur Musculoskeletal: Normal Psychiatric: Anxiety Affect: Anxious Speech Pattern: Clear, Appropriate - Laboratory and Diagnostics Result Diagrams: 02/10/23 05:44 02/10/23 05:44 Labs: 02/05/23 10:45 Blood Blood Culture - Final 02/05/23 10:55 Blood Blood Culture - Preliminary Laboratory WBC 5.2 X10^3/uL (3.6-10.0) 02/10/23 05:44 RBC 4.10 X10^6/uL (3.5-5.4) 02/10/23 05:44 Hgb 11.9 g/dL (12.0-16.0) L 02/10/23 05:44 Hct 34.3 % (36.0-47.0) L 02/10/23 05:44 MCV 83.5 fL (80.0-100.0) 02/10/23 05:44 MCH 28.9 pg (27.0-34.0) 02/10/23 05:44 MCHC 34.6 g/dL (33.0-35.0) 02/10/23 05:44 RDW 13.9 % (11.6-16.5) 02/10/23 05:44 Plt Count 198 X10^3/uL (150.0-450.0) 02/10/23 05:44 MPV 8.0 fL (7.4-11.0) 02/10/23 05:44 Neut % (Auto) 70.4 % (42.0-75.0) 02/10/23 05:44 Lymph % (Auto) 21.2 % (21.0-51.0) 02/10/23 05:44 [place] % (Auto) 5.8 % (0.0-13.0) 02/10/23 05:44 Eos % (Auto) 2.5 % (0.9-2.9) 02/10/23 05:44 Baso % (Auto) 0.1 % (0.2-1.0) L 02/10/23 05:44 Neut # (Auto) 3.6 x10^3/uL (2.2-4.8) 02/10/23 05:44 Lymph # (Auto) 1.1 X10^3/uL (1.3-2.9) L 02/10/23 05:44 [place] # (Auto) 0.3 x10^3/uL (0.3-0.8) 02/10/23 05:44 Eos # (Auto) 0.1 x10^3/uL (0.0-0.2) 02/10/23 05:44 Baso # (Auto) 0.0 X10^3/uL (0.0-0.1) 02/10/23 05:44 Absolute Nucleated RBC 0.1 /100WBC 02/10/23 05:44 Sample Site [place] 02/08/23 11:33 ABG pH 7.480 (7.35-7.45) H 02/08/23 11:33 ABG pCO2 39.0 mmHg (35.0-45.0) 02/08/23 11:33 ABG pO2 68.0 mmHg (80.0-100.0) L 02/08/23 11:33 ABG HCO3 29.0 mmol/L (22-26) H 02/08/23 11:33 ABG O2 Saturation 95.0 % (90-100) 02/08/23 11:33 ABG Base Excess 5.2 mmol/L (-2.0-2.0) H 02/08/23 11:33 Jesus Alberto Test Pos 02/08/23 11:33 A-a Gradient 33.0 mmHg 02/08/23 11:33 FiO2 21.0 02/08/23 11:33 Blood Gas Comments Pt doris well elj cdn 02/08/23 11:33 Sodium 135 mmol/L (136-145) L 02/10/23 05:44 Corrected Sodium 136 mmol/L (136-145) 02/10/23 05:44 Potassium 4.2 mmol/L (3.5-5.1) 02/10/23 05:44 Chloride 99 mmol/L (98-107) 02/10/23 05:44 Carbon Dioxide 32.6 mmol/L (21-32) H 02/10/23 05:44 BUN 17 mg/dL (7-18) 02/10/23 05:44 Creatinine 0.77 mg/dL (0.55-1.02) 02/10/23 05:44 Est GFR (MDRD) Af Amer > 60 (>60) 02/10/23 05:44 Est GFR (MDRD) Non-Af > 60 (>60) 02/10/23 05:44 Glucose 153 mg/dL (65-99) H 02/10/23 05:44 Lactic Acid 0.8 mmol/L (0.4-2.0) 02/05/23 10:45 Calcium 8.7 mg/dL (8.5-10.1) 02/10/23 05:44 Corrected Calcium 9.9 mg/dL (8.5-10.1) 02/10/23 05:44 Magnesium 1.7 mg/dL (2.0-2.9) L 02/08/23 05:45 Total Bilirubin 0.80 mg/dL (0.2-1.0) 02/10/23 05:44 AST 30 Units/L (15-37) 02/10/23 05:44 ALT 171 Units/L (12-78) H 02/10/23 05:44 Alkaline Phosphatase 54 Units/L (46-116) 02/10/23 05:44 Troponin I High Sens 8.4 ng/L (4.0-60.0) 02/05/23 10:45 B-Natriuretic Peptide 57.6 pg/mL (0-79) 02/05/23 10:45 Total Protein 5.8 g/dL (6.4-8.2) L 02/10/23 05:44 Albumin 2.5 g/dL (3.4-5.0) L 02/10/23 05:44 Globulin 3.3 g/dL (2.5-4.5) 02/10/23 05:44 Albumin/Globulin Ratio 0.8 Ratio (1.1-2.1) L 02/10/23 05:44 Lipase 55 Units/L (73-393) L 02/05/23 10:45 Specimen Type Clean catch urine 02/05/23 12:30 Urine Color Dark yellow (YELLOW) 02/05/23 12:30 Urine Appearance Hazy (CLEAR) 02/05/23 12:30 Urine pH 6.0 (5.0 - 8.0) 02/05/23 12:30 Ur Specific [place] 1.020 (1.000-1.030) 02/05/23 12:30 Urine Protein 2+ (NEGATIVE) 02/05/23 12:30 Urine Glucose (UA) Negative (NEGATIVE) 02/05/23 12:30 Urine Ketones 3+ (NEGATIVE) 02/05/23 12:30 Urine Blood 1+ (NEGATIVE) 02/05/23 12:30 Urine Nitrite Negative (NEGATIVE) 02/05/23 12:30 Urine Bilirubin 1+ (NEGATIVE) 02/05/23 12:30 Urine Urobilinogen 2+ (NORMAL) 02/05/23 12:30 Ur Leukocyte Esterase Negative (NEGATIVE) 02/05/23 12:30 Urine RBC 0-2 /HPF (0-3) 02/05/23 12:30 Urine WBC 0-2 /HPF (0-5) 02/05/23 12:30 Ur Squamous Epith Cells Moderate /HPF (NEGATIVE) 02/05/23 12:30 Urine Bacteria Trace /HPF (NEGATIVE) 02/05/23 12:30 Hyaline Casts Many /LPF (NEGATIVE) 02/05/23 12:30 Urine Mucus Many /HPF (NEGATIVE) 02/05/23 12:30 Ur Culture Indicated? No/not indicated 02/05/23 12:30 SARS-CoV-2 (PCR) Negative (NEGATIVE) 02/05/23 10:29 Influenza Type A (PCR) Negative (NEGATIVE) 02/05/23 10:29 Influenza Type B (PCR) Negative (NEGATIVE) 02/05/23 10:29 RSV (PCR) Negative (NEGATIVE) 02/05/23 10:29 Resp Viral Panel (PCR) See scanned report 02/05/23 18:26 - Plan (1) Pneumonia Status: Acute Plan: RESP PANEL ON ADMISSION. CTA LUNGS RO PE. IV ATBX, SPUTUM CULTURE ON ADMISSION. GENTLE IV HYDRATION WITH I&OS. VERIFY HOME MEDICATION, BP CONTROL, BS CONTROL WITH SSI (2) Hypoxia Status: Acute (3) Hypertension Status: Acute
[2023-02-10] MEDS: SNACK - Diabetic Appropriate PO SCH (21:00)
[2023-02-11] MEDS: DUONEB 0.5 MG/3 MG (3 mL) NEB SCH ×4 (00:30→17:00)
[2023-02-11] MEDS: VISTARIL PO SCH ×3 (05:42→21:02)
[2023-02-11] MEDS: MAG-OX TAB PO SCH ×3 (05:42→21:02)
[2023-02-11 06:15] LABS: BASOPHILS % (AUTO) 0.2 % (0.2-1.0); EOSINOPHILS # (AUTO) 0.2 x10^3/uL (0.0-0.2); EOSINOPHILS % (AUTO) 4.1 % (0.9-2.9); HEMATOCRIT 34.7 % (36.0-47.0); LYMPHOCYTES % (AUTO) 18.6 % (21.0-51.0); MEAN CORPUSCULAR HEMOGLOBIN 28.8 pg (27.0-34.0); MEAN CORPUSCULAR HGB CONC 34.7 g/dL (33.0-35.0); MEAN CORPUSCULAR VOLUME 83.1 fL (80.0-100.0); MEAN PLATELET VOLUME 8.1 fL (7.4-11.0); MONOCYTES # (AUTO) 0.3 x10^3/uL (0.3-0.8); MONOCYTES % (AUTO) 5.7 % (0.0-13.0); NEUTROPHILS % (AUTO) 71.4 % (42.0-75.0); PLATELET COUNT 201 X10^3/uL (150.0-450.0); RED BLOOD COUNT 4.17 X10^6/uL (3.5-5.4); RED CELL DISTRIBUTION WIDTH 14.2 % (11.6-16.5); WHITE BLOOD COUNT 5.6 X10^3/uL (3.6-10.0)
[2023-02-11 06:17] LABS: ALANINE AMINOTRANSFERASE 128 Units/L (12-78); ALBUMIN 2.5 g/dL (3.4-5.0); ALKALINE PHOSPHATASE 54 Units/L (46-116); ASPARTATE AMINO TRANSFERASE 19 Units/L (15-37); BLOOD UREA NITROGEN 18 mg/dL (7-18); CALCIUM 8.8 mg/dL (8.5-10.1); CARBON DIOXIDE 30.6 mmol/L (21-32); CHLORIDE 100 mmol/L (98-107); COR NA(FOR HYPERGLY) 138 mmol/L (136-145); CREATININE 0.87 mg/dL (0.55-1.02); GLUCOSE 143 mg/dL (65-99); POTASSIUM 4.1 mmol/L (3.5-5.1); SODIUM 137 mmol/L (136-145); TOTAL PROTEIN 5.9 g/dL (6.4-8.2); eGFR NON BLACK RACES > 60 (>60)
[2023-02-11] MEDS: PULMICORT NEB TX 0.5 MG NEB SCH ×2 (08:27→20:55)
[2023-02-11] MEDS ORDERED: ZESTRIL TAB 20 MG ONE (08:55)
[2023-02-11] MEDS: PROTONIX TAB 40 MG PO SCH (09:00)
[2023-02-11] MEDS: ROBITUSSIN DM PO SCH ×4 (09:00→21:02)
[2023-02-11] MEDS: COLACE CAP 100 MG PO SCH (09:00)
[2023-02-11] MEDS: BUSPAR PO SCH (09:00)
[2023-02-11] MEDS: ROCEPHIN VIAL 1 GRAM 1 G in NS 100 ML IV 100 ML IV SCH (09:00)
[2023-02-11] MEDS: NORVASC TAB 5 MG PO SCH (09:01)
[2023-02-11] MEDS: ZESTRIL TAB 20 MG PO SCH (09:01)
[2023-02-11] MEDS: ASPIRIN 81 MG CHEWTAB PO SCH (09:01)
[2023-02-11] MEDS: PRAVACHOL PO SCH (09:01)
[2023-02-11] MEDS: LOVENOX INJ 40 MG SYR SC SCH (09:01)
[2023-02-11] MEDS: NovoLIN R (or HumuLIN R) SUBCUT PRN ×2 (12:05→22:00)
[2023-02-11] MEDS: SNACK - Diabetic Appropriate PO SCH (21:03)
[2023-02-12] MEDS: DUONEB 0.5 MG/3 MG (3 mL) NEB SCH ×2 (00:15→05:55)
[2023-02-12] MEDS: MAG-OX TAB PO SCH ×2 (05:14→13:07)
[2023-02-12] MEDS: VISTARIL PO SCH ×2 (05:14→13:07)
[2023-02-12 06:25] LABS: BASOPHILS % (AUTO) 0.7 % (0.2-1.0); EOSINOPHILS # (AUTO) 0.3 x10^3/uL (0.0-0.2); EOSINOPHILS % (AUTO) 4.7 % (0.9-2.9); HEMATOCRIT 33.4 % (36.0-47.0); HEMOGLOBIN 11.5 g/dL (12.0-16.0); MEAN CORPUSCULAR HGB CONC 34.6 g/dL (33.0-35.0); MEAN CORPUSCULAR VOLUME 83.9 fL (80.0-100.0); MEAN PLATELET VOLUME 7.9 fL (7.4-11.0); MONOCYTES # (AUTO) 0.4 x10^3/uL (0.3-0.8); MONOCYTES % (AUTO) 6.8 % (0.0-13.0); NEUTROPHILS # (AUTO) 3.8 x10^3/uL (2.2-4.8); NEUTROPHILS % (AUTO) 69.8 % (42.0-75.0); PLATELET COUNT 224 X10^3/uL (150.0-450.0); RED BLOOD COUNT 3.98 X10^6/uL (3.5-5.4); RED CELL DISTRIBUTION WIDTH 14.2 % (11.6-16.5); WHITE BLOOD COUNT 5.5 X10^3/uL (3.6-10.0)
[2023-02-12 06:33] LABS: ALANINE AMINOTRANSFERASE 90 Units/L (12-78); ALBUMIN 2.4 g/dL (3.4-5.0); ALKALINE PHOSPHATASE 52 Units/L (46-116); ASPARTATE AMINO TRANSFERASE 15 Units/L (15-37); BLOOD UREA NITROGEN 18 mg/dL (7-18); CALCIUM 8.6 mg/dL (8.5-10.1); CARBON DIOXIDE 29.2 mmol/L (21-32); CHLORIDE 99 mmol/L (98-107); COR CA(FOR HYPOALB) 9.9 mg/dL (8.5-10.1); COR NA(FOR HYPERGLY) 135 mmol/L (136-145); CREATININE 0.81 mg/dL (0.55-1.02); GLUCOSE 174 mg/dL (65-99); MAGNESIUM 1.8 mg/dL (2.0-2.9); POTASSIUM 4.4 mmol/L (3.5-5.1); SODIUM 133 mmol/L (136-145); TOTAL PROTEIN 5.8 g/dL (6.4-8.2); eGFR NON BLACK RACES > 60 (>60)
[2023-02-12] MEDS ORDERED: ZESTRIL TAB 20 MG ONE (08:21)
[2023-02-12] MEDS: LOVENOX INJ 40 MG SYR SC SCH (08:55)
[2023-02-12] MEDS: ROCEPHIN VIAL 1 GRAM 1 G in NS 100 ML IV 100 ML IV SCH (08:55)
[2023-02-12] MEDS: PROTONIX TAB 40 MG PO SCH (08:55)
[2023-02-12] MEDS: NORVASC TAB 5 MG PO SCH (08:56)
[2023-02-12] MEDS: ZESTRIL TAB 20 MG PO SCH (08:56)
[2023-02-12] MEDS: COLACE CAP 100 MG PO SCH (08:56)
[2023-02-12] MEDS: ASPIRIN 81 MG CHEWTAB PO SCH (08:56)
[2023-02-12] MEDS: PRAVACHOL PO SCH (08:56)
[2023-02-12] MEDS: ROBITUSSIN DM PO SCH ×3 (08:57→17:27)
[2023-02-12] MEDS: BUSPAR PO SCH (08:57)
[2023-02-12] MEDS: PULMICORT NEB TX 0.5 MG NEB SCH (09:09)
--- NOTE | 2023-02-12 11:26 | RAD ---
EXAM:CHEST, 1 VIEWHISTORY:pneumoniaCOMPARISON:February 07, 2023TECHNIQUE:Portable chest radiographFINDINGS:Residual pulmonary hyperinflation of mild severity. Coarsening of the interstitial lung markings has improved in the interim with respect to the bilateral lung bases. There is residual peribronchial thickening in the perihilar regions radiating into the lower lobes. No consolidating infiltrates. Pleural spaces are clear. No evidence of free air or pneumothorax. No acute osseous abnormalities of the chest. Heart size.IMPRESSION:Improved but not altogether resolved bronchial inflammatory changes with no consolidating infiltrates.THIS IS AN ELECTRONICALLY VERIFIED FINAL REPORT02/12/2023 10:43 AM - Electronically signed by Brian Bee MD
[2023-02-12] MEDS: NovoLIN R (or HumuLIN R) SUBCUT PRN (11:46)
[2023-02-12 12:07] VITALS: BP 179/77; PULSE 80; TEMP 98; O2SAT 93
== END 2023-02-12 18:05 | disposition home health service (06) | DRG 195 ==
LOC: EDBD → MED/SURG 09:48 → ER 09:48 → OBSVTOIN 16:14 → MED/SURG 18:19
PROVIDERS: ADMIT Internal Medicine; ATTEND Internal Medicine